=== PATIENT | female | born 1960 | race Caucasian/White ===

== ENCOUNTER 2024-12-18 09:28 | Day surgery (SDC) | payer OTHER ==
[2024-12-10 15:13] VITALS: BP 144/80
[~2024-12-18] VITALS: Ht 162.6 cm; Wt 97.5 kg
[~2024-12-18 09:28] MED LIST: COZAAR50 MG PO
[2024-12-18] MEDS ORDERED: POVIDONE-IODINE 118 ML BOTT TOP ONE (13:15)
[2024-12-18] MEDS ORDERED: HEMOSTATIC MATRIX 1 KIT KIT TOP ONE (13:15)
[2024-12-18] MEDS ORDERED: CEFTRIAXONE SODIUM 2,000 MG VIAL IV ONE (13:15)
[2024-12-18] MEDS ORDERED: METRONIDAZOLE/SODIUM CHLORIDE 500 MG/100 ML PIGGYBACK IV ONE (13:15)
[2024-12-18] MEDS ORDERED: DIBUCAINE 30 GM TUBE RECTAL ONE (13:15)
[2024-12-18] MEDS ORDERED: INTESTINEX680 M1 PO (15:03)
[2024-12-18] MEDS ORDERED: PERCOCET 5-3251 EACH PO (15:03)
[2024-12-18] MEDS ORDERED: NEURONTIN300 MG PO (15:03)
[2024-12-18] MEDS ORDERED: CELECOXIB200 MG PO (15:03)
[2024-12-18] MEDS ORDERED: MORPHINE SULFATE 4 MG/ML VIAL IV ONE ×2 (16:10→17:10)
== END 2024-12-18 17:50 | disposition home or self-care (01) ==
LOC: CIR.AMB 09:28
PROVIDERS: ATTEND Surgery
DX: K64.2 Third degree hemorrhoids (principal); K64.4 Residual hemorrhoidal skin tags; K64.8 Other hemorrhoids; Z88.0 Allergy status to penicillin